=== PATIENT | male | born 1970 | race Hispanic/Latino ===

== ENCOUNTER 2018-10-05 11:16 | Inpatient (IN) | payer OTHER, BC ==
--- NOTE | 2018-10-05 11:50 | ED PDOC ---
HPI: General Adult Time Seen by Provider: 10/05/18 11:26 Chief Complaint (Nursing): Upper Extremity Problem/Injury History Per: Patient Additional Complaint(s): Pt. states earlier today while at work he was on a ladder and he accidentally fell off. States he injured his L wrist, R leg, and headache. Pt. states he is uncertain if he injured his head. Denies LOC, N/V, chest pain, SOB, hip/pelvic pain, abd pain, numbness, tingling, other injury. Past Medical History Reviewed: Historical Data, Nursing Documentation, Vital Signs Vital Signs: Last Vital Signs Temp 97.8 F 10/05/18 11:18 Pulse 87 10/05/18 11:18 Resp 20 10/05/18 11:18 BP 161/109 H 10/05/18 11:18 Pulse Ox 96 10/05/18 11:18 - Medical History Other PMH: vertigo - Surgical History Surgical History: No Surg Hx - Family History Family History: States: No Known Family Hx - Home Medications Home Medications: Ambulatory Orders Medication Instructions Recorded No Known Home Med 10/05/18 - Allergies Allergies/Adverse Reactions: Allergies Allergy/AdvReac Type Severity Reaction Status Date / Time No Known Allergies Allergy Verified 10/05/18 11:17 Review of Systems ROS Statement: Except As Marked, All Systems Reviewed And Found Negative Musculoskeletal: Positive for: Arm Pain, Leg Pain Neurological: Positive for: Headache Physical Exam - Physical Exam Appears: Positive for: Well, Non-toxic, No Acute Distress Head Exam: Positive for: ATRAUMATIC, NORMAL INSPECTION, NORMOCEPHALIC Skin: Positive for: Normal Color, Warm. Negative for: Rash Eye Exam: Positive for: Normal appearance, EOMI, PERRL ENT: Positive for: Normal ENT Inspection Neck: Positive for: Normal, Painless ROM Cardiovascular/Chest: Positive for: Regular Rate, Rhythm, Chest Non Tender Respiratory: Positive for: Normal Breath Sounds. Negative for: Respiratory Dis tress Gastrointestinal/Abdominal: Positive for: Normal Exam, Soft. Negative for: Tenderness Extremity: Positive for: Other (L wrist with mild deformity, tenderness, and swelling without break in skin integrity; radial pulse 2+ b/l, equal head of commission department stregh t b/l; able to actively move all fingers on L hand, no L elbow or L shoulder tenderness or swelling; superficial abrasions on anterior R leg) Neurologic/Psych: Positive for: Alert, Oriented (x3) - Laboratory Results Result Diagrams: 10/05/18 12:00 10/05/18 12:00 - ECG ECG: Positive for: Interpreted By Me ECG Rhythm: Positive for: Sinus Rhythm. Negative for: ST/T Changes Rate: 69 O2 Sat by Pulse Oximetry: 96 - Progress ED Course And Treament: Labs, L wrist and R leg x-rays, CT head w/o contrast, morphine 2mg IV, zofran 4mg IV ordered. Pt. kept NPO. Wrist x-ray: Comminuted intra-articular angulated fracture of distal radius as per radiology report. CT head w/o contrast: No acute intracranial hemorrhage. 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 Tib/Fib x-ray: no fx as per radiology report. 1420 Case d/w Dr. Koehler who requests pt. to be splinted and admitted for OR tomorrow. Case d/w Dr. Ag and agrees with plan and care. Case d/w Dr. Mckinney, hospitalist, and arrangements made for admission. All CT and x-ray results d/w family and patient. Pt. and family informed of plan. Agrees with plan and care. All questions answered. Procedures - Time-Out Type of Procedure: Splint placement Site of Procedure: L arm Correct Patient (with visual ID + MR# on ID Band): Yes Correct Procedure: Yes Correct Site Marked: Yes X-Ray Marked: Yes PA/Tech: Boo SHANNON-C - Splinting Location: L arm Hand-Made Type: orthoglass Splint: sugar-tong Pre-Proc Neuro Vasc Exam: normal Post-Proc Neuro Vasc Exam: normal Progress: Dr. Koehler requests arm to be kept elevated and hanging from pole. L arm held elevated 90 degree position using pole. Reports feeling much better in this position. Disposition - Clinical Impression Clinical Impression: Wrist fracture, left - Patient ED Disposition Is Patient to be Admitted: No - Disposition Disposition Time: 14:20 Condition: FAIR
[2018-10-05] MEDS ORDERED: Tdap Vaccine 0.5 ml Vial (10-64 yrs) IM ONE ×2 (11:57→12:45)
[2018-10-05 12:39] LABS: BASO # 0.1 K/uL (0.0-0.2); BASO % 0.8 % (0.0-2.0); EOS # 0.1 K/uL (0.0-0.7); EOS % 1.3 % (0.0-4.0); HEMOGLOBIN 15.5 g/dL (12.0-18.0); LYMPH # 2.2 K/uL (1.0-4.3); LYMPH % 32.1 % (20.0-40.0); MEAN CELL VOLUME 86.4 fl (80.0-94.0); MEAN CORPUSCULAR HGB CONC 33.6 g/dL (33.0-37.0); MONO # 0.5 K/uL (0.0-0.8); MONO % 7.6 % (0.0-10.0); NEUT % 58.2 % (50.0-75.0); NRBC % 0.3 % (0.0-0.0); RBC 5.33 Mil/uL (4.40-5.90); RED CELL DISTRIBUTION WIDTH 13.3 % (11.5-14.5); WHITE BLOOD COUNT 6.8 K/uL (4.8-10.8)
[2018-10-05 12:43] LABS: PROTHROMBIN TIME 11.6 Seconds (9.8-13.1)
[2018-10-05 12:46] LABS: PARTIAL THROMBOPLASTIN TIME 32.3 Seconds (25.6-37.1)
[2018-10-05 12:48] LABS: ALT/SGPT 33 U/L (21-72); AST/SGOT 26 U/L (17-59); BLOOD UREA NITROGEN 21 mg/dl (9-20); CALCIUM 10.3 mg/dL (8.4-10.2); GFR NON-AFRICAN AMERICAN > 60
--- NOTE | 2018-10-05 13:08 | CT ---
Date of service: 10/05/2018 PROCEDURE: CT HEAD WITHOUT CONTRAST. HISTORY: trauma COMPARISON: 06/28/2014 TECHNIQUE: Axial computed tomography images were obtained through the head/brain without intravenous contrast. Radiation dose: Total exam DLP = 744.34 mGy-cm. This CT exam was performed using one or more of the following dose reduction techniques: Automated exposure control, adjustment of the mA and/or kV according to patient size, and/or use of iterative reconstruction technique. FINDINGS: HEMORRHAGE: No intracranial hemorrhage. BRAIN: No mass effect or edema. 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 No evidence of acute infarct. VENTRICLES: Unremarkable. No hydrocephalus. CALVARIUM: Unremarkable. PARANASAL SINUSES: Unremarkable as visualized. No significant inflammatory changes. MASTOID AIR CELLS: Unremarkable as visualized. No inflammatory changes. OTHER FINDINGS: None. IMPRESSION: No acute intracranial hemorrhage. 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 Otherwise unremarkable.
--- NOTE | 2018-10-05 13:12 | RAD ---
Date of service: 10/05/2018 PROCEDURE: Left Wrist Radiographs. HISTORY: trauma COMPARISON: None. FINDINGS: BONES: Comminuted intra-articular distal radial fracture with dorsal angulation of the distal radial fragment. Radiocarpal articulation grossly intact. Ulnar styloid process appears intact. No other fracture identified. Intercarpal and carpal-metacarpal articulations are intact. JOINTS: As above SOFT TISSUES: Normal. OTHER FINDINGS: None. IMPRESSION: Comminuted intra-articular angulated fracture of distal radius.
--- NOTE | 2018-10-05 13:14 | RAD ---
Date of service: 10/05/2018 PROCEDURE: Radiographs of the right tibia and fibula. HISTORY: trauma COMPARISON: None available TECHNIQUE: Frontal and lateral views obtained. FINDINGS: BONES: No fracture or destructive lesion. JOINT SPACES: Unremarkable. OTHER FINDINGS: None. IMPRESSION: Unremarkable radiographs of the right tibia and fibula.
--- NOTE | 2018-10-05 15:58 | CP.PCM.HP ---
<PierceOrlando - Last Filed: 10/05/18 16:29> History of Present Illness - History of Present Illness History of Present Illness: 47 y/o M with no significant PMHx came to ED after a fall. Pt. states earlier today while at work he was on a ladder and he accidentally fell off. He injured his left wrist, right leg, and head. Denies loosing consciousness, nausea, vomiting, chest pain, SOB, hip/pelvic pain, abd pain, numbness, tingling, other injury. A friend called an ambulance and brought to ED. PMD: Dr. Ag PMHx: Denies PSHx: Tympanostomy and tendon repair surgery Allergies: NKDA F/H: DM and HTN in maternal side of family, Thyroid cancer in grandfather Social Hx: Ex-Smoker 20 years, 1 PPD, quit 5 years ago, Social alcohol, denies drug use. ED Course: VSS except for elevated BP XR L wrist: intraarticular fracture of radius R leg XR: No fracture noted PT/PTT/CBC/CMP unremarkable except for BUN 21. Present on Admission - Present on Admission Any Indicators Present on Admission: No History of DVT/PE: No History of Uncontrolled Diabetes: No Urinary Catheter: No Decubitus Ulcer Present: No Review of Systems - Review of Systems Systems not reviewed;Unavailable: Acuity of Condition - Constitutional Constitutional: Headache. absent: Anorexia, Fever - EENT Eyes: absent: Change in Vision - Cardiovascular Cardiovascular: absent: Chest Pain, Chest Pain with Activity - Respiratory Respiratory: absent: Cough, Dyspnea, Dyspnea on Exertion - Gastrointestinal Gastrointestinal: absent: Abdominal Pain, Nausea, Vomiting - Genitourinary Genitourinary: absent: Change in Urinary Stream - Musculoskeletal Musculoskeletal: absent: Back Pain - Neurological Neurological: absent: Abnormal Gait, Confusion, Numbness, Weakness Past Patient History - Past Social History Smoking Status: Former Smoker - NEUROLOGICAL Hx Vertigo: Yes - PSYCHIATRIC Hx Substance Use: No - SURGICAL HISTORY Hx Musculoskeletal Surgery: Yes Other/Comment: ear tubes Meds Allergies/Adverse Reactions: Allergies Allergy/AdvReac Type Severity Reaction Status Date / Time No Known Allergies Allergy Verified 10/05/18 11:17 Physical Exam - Constitutional Appears: Well, In Acute Distress - Head Exam Head Exam: ATRAUMATIC, NORMAL INSPECTION, NORMOCEPHALIC - Eye Exam Eye Exam: EOMI, Normal appearance Pupil Exam: PERRL - ENT Exam ENT Exam: Mucous Membranes Moist - Neck Exam Neck exam: Positive for: Full Rom, Normal Inspection. Negative for: Tenderness - Respiratory Exam Respiratory Exam: Clear to Auscultation Bilateral, NORMAL BREATHING PATTERN. absent: Rales, Rhonchi, Wheezes, Respiratory Distress - Cardiovascular Exam Cardiovascular Exam: REGULAR RHYTHM, +S1, +S2. absent: Systolic Murmur - GI/Abdominal Exam GI & Abdominal Exam: Normal Bowel Sounds, Soft. absent: Distended, Tenderness - Extremities Exam Additional comments: Limited ROM L wrist, LUE warm, pink, sensation intact. B/L LE, intact, sensory, motor and reflex intact. - Neurological Exam Neurological exam: Alert, Normal Gait, Oriented x3 - Psychiatric Exam Psychiatric exam: Normal Affect, Normal Mood - Skin Skin Exam: Dry, Intact, Normal Color, Warm Results - Vital Signs Recent Vital Signs: Last Vital Signs Temp 99.5 F 10/05/18 15:25 Pulse 73 10/05/18 15:25 Resp 18 10/05/18 15:25 BP 155/98 H 10/05/18 15:25 Pulse Ox 99 10/05/18 15:25 - Labs Result Diagrams: 10/05/18 12:00 10/05/18 12:00 Labs: Laboratory Results - last 24 hr 10/05/18 10/05/18 10/05/18 12:00 12:00 12:00 WBC 6.8 RBC 5.33 Hgb 15.5 Hct 46.1 MCV 86.4 MCH 29.0 MCHC 33.6 RDW 13.3 Plt Count 216 MPV 9.0 Neut % (Auto) 58.2 Lymph % (Auto) 32.1 [place] % (Auto) 7.6 Eos % (Auto) 1.3 Baso % (Auto) 0.8 Neut # (Auto) 4.0 Lymph # (Auto) 2.2 [place] # (Auto) 0.5 Eos # (Auto) 0.1 Baso # (Auto) 0.1 PT 11.6 INR 1.0 APTT 32.3 Sodium 140 Potassium 4.4 Chloride 101 Carbon Dioxide 26 Anion Gap 17 BUN 21 H Creatinine 0.9 Est GFR ( Amer) > 60 Est GFR (Non-Af Amer) > 60 Random Glucose 119 H Calcium 10.3 H Total Bilirubin 0.6 AST 26 ALT 33 Alkaline Phosphatase 56 Total Protein 7.8 Albumin 4.0 Globulin 3.8 Albumin/Globulin Ratio 1.0 Blood Type Blood Type Confirm Antibody Screen BBK History Checked 10/05/18 10/05/18 12:00 13:23 WBC RBC Hgb Hct MCV MCH MCHC RDW Plt Count MPV Neut % (Auto) Lymph % (Auto) [place] % (Auto) Eos % (Auto) Baso % (Auto) Neut # (Auto) Lymph # (Auto) [place] # (Auto) Eos # (Auto) Baso # (Auto) PT INR APTT Sodium Potassium Chloride Carbon Dioxide Anion Gap BUN Creatinine Est GFR ( Amer) Est GFR (Non-Af Amer) Random Glucose Calcium Total Bilirubin AST ALT Alkaline Phosphatase Total Protein Albumin Globulin Albumin/Globulin Ratio Blood Type A NEGATIVE Blood Type Confirm A NEGATIVE Antibody Screen Negative BBK History Checked No verified bt Assessment & Plan - Assessment and Plan (Free Text) Assessment: 47 y/o M with no PMHx admitted after a fall injury from ladder. Patient with communited fracture of left distal radius on XR. XR L wrist: Comminuted intra-articular angulated fracture of distal radius. Head CT: No acute intracranial hemorrhage. 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 Otherwise unremarkable. Tibia/Fibula Xray: Unremarkable radiographs of the right tibia and fibula. Plan: Distal radial fracture - XR L Wrist: Comminuted intra-articular distal radial fracture with dorsal angulation of the distal radial fragment. - S/P Morphine 2 and 4 mg IVP in ER - Pain control with Tylenol, toradol 15 mg and Morphine 2 mg - Orthopedic consult on board, Will follow recs - PT/PTT, CBC, CMP unremarkable - Patient to remain NPO past midnight. DVT prophylaxis - SCDs for now Diet - NPO past midnight 10/06 <Tamera Mckinney - Last Filed: 10/06/18 09:08> Results - Vital Signs Recent Vital Signs: Last Vital Signs Temp 98.5 F 10/05/18 20:30 Pulse 76 10/05/18 20:30 Resp 19 10/05/18 20:44 BP 157/90 H 10/05/18 20:30 Pulse Ox 96 10/05/18 20:30 - Labs Result Diagrams: 10/05/18 12:00 10/05/18 12:00 Labs: Laboratory Results - last 24 hr 10/05/18 10/05/18 10/05/18 12:00 12:00 12:00 WBC 6.8 RBC 5.33 Hgb 15.5 Hct 46.1 MCV 86.4 MCH 29.0 MCHC 33.6 RDW 13.3 Plt Count 216 MPV 9.0 Neut % (Auto) 58.2 Lymph % (Auto) 32.1 [place] % (Auto) 7.6 Eos % (Auto) 1.3 Baso % (Auto) 0.8 Neut # (Auto) 4.0 Lymph # (Auto) 2.2 [place] # (Auto) 0.5 Eos # (Auto) 0.1 Baso # (Auto) 0.1 PT 11.6 INR 1.0 APTT 32.3 Sodium 140 Potassium 4.4 Chloride 101 Carbon Dioxide 26 Anion Gap 17 BUN 21 H Creatinine 0.9 Est GFR ( Amer) > 60 Est GFR (Non-Af Amer) > 60 Random Glucose 119 H Calcium 10.3 H Total Bilirubin 0.6 AST 26 ALT 33 Alkaline Phosphatase 56 Total Protein 7.8 Albumin 4.0 Globulin 3.8 Albumin/Globulin Ratio 1.0 Blood Type Blood Type Confirm Antibody Screen BBK History Checked 10/05/18 10/05/18 12:00 13:23 WBC RBC Hgb Hct MCV MCH MCHC RDW Plt Count MPV Neut % (Auto) Lymph % (Auto) [place] % (Auto) Eos % (Auto) Baso % (Auto) Neut # (Auto) Lymph # (Auto) [place] # (Auto) Eos # (Auto) Baso # (Auto) PT INR APTT Sodium Potassium Chloride Carbon Dioxide Anion Gap BUN Creatinine Est GFR ( Amer) Est GFR (Non-Af Amer) Random Glucose Calcium Total Bilirubin AST ALT Alkaline Phosphatase Total Protein Albumin Globulin Albumin/Globulin Ratio Blood Type A NEGATIVE Blood Type Confirm A NEGATIVE Antibody Screen Negative BBK History Checked No verified bt Attending/Attestation - Attestation I have personally seen and examined this patient.: Yes I have fully participated in the care of the patient.: Yes I have reviewed all pertinent clinical information: Yes Notes (Text): 10/06/18 09:08 Agree with findings and plan as above.
--- NOTE | 2018-10-05 19:02 | RAD ---
Date of service: 10/05/2018 PROCEDURE: CHEST RADIOGRAPH, 1 VIEW HISTORY: Pre-op COMPARISON: 08/29/2013 FINDINGS: LUNGS: Clear. PLEURA: No pneumothorax or pleural fluid seen. CARDIOVASCULAR: No aortic atherosclerotic calcification present. Normal. OSSEOUS STRUCTURES: No significant abnormalities. VISUALIZED UPPER ABDOMEN: Normal. OTHER FINDINGS: None. IMPRESSION: No active disease.
[2018-10-05] MEDS: Potassium Ch 20mEq in D5-1/2NS 1,000 ML IV SCH (21:59)
[2018-10-06] MEDS: Potassium Ch 20mEq in D5-1/2NS 1,000 ML IV SCH (05:11)
--- NOTE | 2018-10-06 08:55 | CARD ---
APPROVED REPORT Date of service: 10/05/2018 EKG Measurement Heart [id number] <Conclusion> Normal sinus rhythm Minimal voltage criteria for LVH, may be normal variant Borderline ECG
--- NOTE | 2018-10-06 09:58 | CP.PCM.PN ---
<Orlando Pierce - Last Filed: 10/06/18 14:05> Subjective - Date & Time of Evaluation Date of Evaluation: 10/06/18 Time of Evaluation: 07:00 - Subjective Subjective: Patient seen and examined at bedside in AM. Patient sitting in chair with L hand in upright position with volar splint. Patient NPO since midnight. Patient continues to have moderate pain. Last Toradol dose at 5 am. Patient refuses to take morphine for pain relief due to nausea. Last BM yesterday. Patient's BP has been elevated in 150/80 since yesterday but denies any palpitation, CP, SOB dizziness, headache or vision changes. Pt also denies any abdominal pain, na usea, vomiting, pedal edema. Repeat BP at 11am 177/110 and 180/113. Denies any acute symptoms. Objective - Vital Signs/Intake and Output Vital Signs (last 24 hours): Temp Pulse Resp BP Pulse Ox 98.5 F 65 19 178/70 H 96 10/05/18 20:30 10/06/18 09:26 10/05/18 20:44 10/06/18 09:26 10/05/18 20:30 - Medications Medications: Current Medications Acetaminophen (Tylenol 325mg Tab) 650 mg PO Q4 PRN PRN Reason: Pain, Mild (1-3) Potassium Chloride/Dextrose/Sod Cl (Potassium Chl 20 Meq In D5-1/2ns) 1,000 mls @ 125 mls/hr IV .Q8H CATRACHITO Stop: 10/06/18 17:00 Last Admin: 10/06/18 05:11 Dose: 125 mls/hr Ketorolac Tromethamine (Toradol) 30 mg IVP Q6 PRN PRN Reason: Pain, moderate (4-7) Last Admin: 10/06/18 04:58 Dose: 30 mg Morphine Sulfate (Morphine) 2 mg IVP Q4 PRN PRN Reason: Pain, severe (8-10) Last Admin: 10/05/18 19:45 Dose: 2 mg - Labs Labs: 10/05/18 12:00 10/05/18 12:00 PT 11.6 Seconds (9.8-13.1) 10/05/18 12:00 INR 1.0 10/05/18 12:00 APTT 32.3 Seconds (25.6-37.1) 10/05/18 12:00 - Constitutional Appears: Well, No Acute Distress - Head Exam Head Exam: ATRAUMATIC, NORMAL INSPECTION, NORMOCEPHALIC - Eye Exam Eye Exam: EOMI, Normal appearance - ENT Exam ENT Exam: Mucous Membranes Moist - Respiratory Exam Respiratory Exam: Clear to Ausculation Bilateral, NORMAL BREATHING PATTERN. absent: Rales, Rhonchi, Wheezes, Respiratory Distress - Cardiovascular Exam Cardiovascular Exam: REGULAR RHYTHM, +S1, +S2. absent: Murmur - GI/Abdominal Exam GI & Abdominal Exam: Soft, Normal Bowel Sounds. absent: Distended, Tenderness - Extremities Exam Extremities Exam: absent: Calf Tenderness, Pedal Edema, Tenderness Additional comments: L hand: Elevated L hand with splint, motor, sensory intact. - Neurological Exam Neurological Exam: Alert, Awake, Oriented x3 - Psychiatric Exam Psychiatric exam: Normal Affect, Normal Mood - Skin Skin Exam: Dry, Intact, Normal Color, Warm Assessment and Plan - Assessment and Plan (Free Text) Assessment: 47 y/o M with no PMHx admitted after a fall injury from ladder. Patient with communited fracture of left distal radius on XR. XR L wrist: Comminuted intra-articular angulated fracture of distal radius. Head CT: No acute intracranial hemorrhage. 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 Otherwise unremarkable. Tibia/Fibula Xray: Unremarkable radiographs of the right tibia and fibula Plan: Distal radial fracture - XR L Wrist: Comminuted intra-articular distal radial fracture with dorsal angulation of the distal radial fragment. - Pain control with Tylenol, toradol 30 mg and Morphine 2 mg - Orthopedic consult on board, Will follow recs - PT/PTT, CBC, CMP, CXR and EKG unremarkable - Pt to remain NPO - OR for today afternoon. Elevated BP - Continues to have elevated BP, 170s/90s - Asymptomatic - S/P Metoprolol 25 mg PO stat - Lisinopril 10 mg PO stat - Tylenol 975 and Toradol 30 mg STAT - Monitor vitals DVT prophylaxis - SCDs for now Diet - NPO past midnight 10/06 <Tamera Mckinney - Last Filed: 10/09/18 15:30> Objective - Vital Signs/Intake and Output Vital Signs (last 24 hours): Temp Pulse Resp BP Pulse Ox 97.5 F L 100 H 20 174/75 H 96 10/07/18 08:18 10/07/18 11:51 10/07/18 08:18 10/07/18 11:51 10/07/18 08:18 - Labs Labs: 10/07/18 06:21 10/07/18 06:21 PT 11.6 Seconds (9.8-13.1) 10/05/18 12:00 INR 1.0 10/05/18 12:00 APTT 32.3 Seconds (25.6-37.1) 10/05/18 12:00 Attending/Attestation - Attestation I have personally seen and examined this patient.: Yes I have fully participated in the care of the patient.: Yes I have reviewed all pertinent clinical information, including history, physical exam and plan: Yes Notes (Text): 10/09/18 15:30 Agree with findings and plan as above.
--- NOTE | 2018-10-06 10:05 | CP.PCM.CON ---
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 He noted swelling and deformity at that time. Denies numbness/tingling. PMH: vertigo PSH: right ankle tendon repair, tubes in ears NKDA Review of Systems - Review of Systems All systems: reviewed and no additional remarkable complaints except - Musculoskeletal Musculoskeletal: As Per HPI Past Patient History - Past Medical History & Family History Past Medical History?: Yes Past Family History: Reviewed and not pertinent - Past Social History Smoking Status: Former Smoker - CARDIAC Hx Cardiac Disorders: No - PULMONARY Hx Respiratory Disorders: No - NEUROLOGICAL Hx Neurological Disorder: Yes (vertigo) - HEENT Hx HEENT Problems: No - RENAL Hx Chronic Kidney Disease: No - ENDOCRINE/METABOLIC Hx Endocrine Disorders: No - HEMATOLOGICAL/ONCOLOGICAL Hx Blood Disorders: No Hx AIDS: No Hx Human Immunodeficiency Virus (HIV): No - INTEGUMENTARY Hx Dermatological Problems: No - MUSCULOSKELETAL/RHEUMATOLOGICAL Hx Musculoskeletal Disorders: No Hx Falls: Yes - GASTROINTESTINAL Hx Gastrointestinal Disorders: No - GENITOURINARY/GYNECOLOGICAL Hx Genitourinary Disorders: No - PSYCHIATRIC Hx Psychophysiologic Disorder: No Hx Substance Use: No - SURGICAL HISTORY Hx Surgeries: Yes Hx Musculoskeletal Surgery: Yes Other/Comment: ear tubes - ANESTHESIA Hx Anesthesia: Yes Hx Anesthesia Reactions: No Hx Malignant Hyperthermia: No Has any member of the family had a problem w/ anesthesia?: No Meds Allergies/Adverse Reactions: Allergies Allergy/AdvReac Type Severity Reaction Status Date / Time No Known Allergies Allergy Verified 10/05/18 11:17 - Medications Medications: Current Medications Acetaminophen (Tylenol 325mg Tab) 650 mg PO Q4 PRN PRN Reason: Pain, Mild (1-3) Potassium Chloride/Dextrose/Sod Cl (Potassium Chl 20 Meq In D5-1/2ns) 1,000 mls @ 125 mls/hr IV .Q8H CATRACHITO Stop: 10/06/18 17:00 Last Admin: 10/06/18 05:11 Dose: 125 mls/hr Ketorolac Tromethamine (Toradol) 30 mg IVP Q6 PRN PRN Reason: Pain, moderate (4-7) Last Admin: 10/06/18 04:58 Dose: 30 mg Morphine Sulfate (Morphine) 2 mg IVP Q4 PRN PRN Reason: Pain, severe (8-10) Last Admin: 10/05/18 19:45 Dose: 2 mg Physical Exam - Constitutional Appears: Well, No Acute Distress - Head Exam Head Exam: ATRAUMATIC - Respiratory Exam Respiratory Exam: NORMAL BREATHING PATTERN - Cardiovascular Exam Additional comments: +cap refill - Expanded Upper Extremities Exam Left Forearm Wrist exam: swelling (pain with any active ROM fingers) Neuro motor exam: finger 2-5 abduction intact, thumb abduction, thumb IP flexion intact, thumb opposition intact, wrist extension intact Neurosensory exam: median nerve intact, radial nerve intact, ulnar nerve intact - Neurological Exam Neurological exam: Alert, Oriented x3 - Psychiatric Exam Psychiatric exam: Normal Affect, Normal Mood - Skin Skin Exam: Dry, Intact, Normal Color, Warm Results - Vital Signs Recent Vital Signs: Last Vital Signs Temp 98.5 F 10/05/18 20:30 Pulse 65 10/06/18 09:26 Resp 19 10/05/18 20:44 BP 178/70 H 10/06/18 09:26 Pulse Ox 96 10/05/18 20:30 - Labs Result Diagrams: 10/07/18 06:21 10/07/18 06:21 Labs: Laboratory Results - last 24 hr 10/05/18 10/05/18 10/05/18 12:00 12:00 12:00 WBC 6.8 RBC 5.33 Hgb 15.5 Hct 46.1 MCV 86.4 MCH 29.0 MCHC 33.6 RDW 13.3 Plt Count 216 MPV 9.0 Neut % (Auto) 58.2 Lymph % (Auto) 32.1 [place] % (Auto) 7.6 Eos % (Auto) 1.3 Baso % (Auto) 0.8 Neut # (Auto) 4.0 Lymph # (Auto) 2.2 [place] # (Auto) 0.5 Eos # (Auto) 0.1 Baso # (Auto) 0.1 PT 11.6 INR 1.0 APTT 32.3 Sodium 140 Potassium 4.4 Chloride 101 Carbon Dioxide 26 Anion Gap 17 BUN 21 H Creatinine 0.9 Est GFR ( Amer) > 60 Est GFR (Non-Af Amer) > 60 Random Glucose 119 H Calcium 10.3 H Total Bilirubin 0.6 AST 26 ALT 33 Alkaline Phosphatase 56 Total Protein 7.8 Albumin 4.0 Globulin 3.8 Albumin/Globulin Ratio 1.0 Blood Type Blood Type Confirm Antibody Screen BBK History Checked 10/05/18 10/05/18 12:00 13:23 WBC RBC Hgb Hct MCV MCH MCHC RDW Plt Count MPV Neut % (Auto) Lymph % (Auto) [place] % (Auto) Eos % (Auto) Baso % (Auto) Neut # (Auto) Lymph # (Auto) [place] # (Auto) Eos # (Auto) Baso # (Auto) PT INR APTT Sodium Potassium Chloride Carbon Dioxide Anion Gap BUN Creatinine Est GFR ( Amer) Est GFR (Non-Af Amer) Random Glucose Calcium Total Bilirubin AST ALT Alkaline Phosphatase Total Protein Albumin Globulin Albumin/Globulin Ratio Blood Type A NEGATIVE Blood Type Confirm A NEGATIVE Antibody Screen Negative BBK History Checked No verified bt - Impressions Impression: atient Name / ID : AKILAH HERNANDEZ R / [id number] Exam Date : 10/05/2018 12:23:59 ( Approved ) Study Comment : Sex / Age : M / 47Y Creator : Austin Vega MD Dictator : Austin Vega MD Competency Evaluated Nurse Aide : Client Portfolio Manager : Austin Vega MD Approver2 : Report Date : 10/05/2018 13:09:04 My Comment : Date of service: 10/05/2018 PROCEDURE: Left Wrist Radiographs. HISTORY: trauma COMPARISON: None. FINDINGS: BONES: Comminuted intra-articular distal radial fracture with dorsal angulation of the distal radial fragment. Radiocarpal articulation grossly intact. Ulnar styloid process appears intact. No other fracture identified. Intercarpal and carpal- metacarpal articulations are intact. JOINTS: As above SOFT TISSUES: Normal. OTHER FINDINGS: None. IMPRESSION: Comminuted intra-articular angulated fracture of distal radius. Assessment & Plan (1) Closed fracture of left distal radius Assessment and Plan: NPO for OR today elevation splint applied by ED labs reviewed d/w Dr. Koehler, agrees with above Status: Acute
[2018-10-06] MEDS ORDERED: methylPREDNISolone Depo 80 mg/ml Inj ONE (14:00)
[2018-10-06] MEDS ORDERED: Propofol 10 mg/ml Inj (20 ML) ONE (15:28)
[2018-10-06] MEDS ORDERED: Lactated Ringer's 1,000 ML IV ONE ×2 (15:30→19:50)
[2018-10-06] MEDS ORDERED: ePHEDrine 50 mg/ml Inj ONE (15:54)
[2018-10-06] MEDS: Bacitracin Ointment 30 GM TUBE ONE ×2 (17:40→17:54)
[2018-10-06] MEDS ORDERED: Bupivacaine HCl 0.5% PF (30 ml) Inj IJ ONE (17:53)
[2018-10-06] MEDS ORDERED: Oxycodone/Acetaminophen 5/325 mg Tab PO PRN ×2 (18:11)
[2018-10-06] MEDS ORDERED: Dexamethasone 4 mg/1 ml IVP PRN (18:12)
[2018-10-06] MEDS ORDERED: HYDROmorphone 0.5 mg/0.5 ml ISec IVP PRN (18:12)
[2018-10-06] MEDS ORDERED: Lactated Ringer's 1,000 ML IV SCH (18:15)
[2018-10-06] MEDS ORDERED: Lactated Ringer's 500 ML IV ONE (18:15)
--- NOTE | 2018-10-06 18:29 | PCM.SURG1 ---
Surgeon's Initial Post Op Note - Surgeon's Notes Surgeon: Rodo Vending Stand Supervisor: GABBY Yepez/ 2nd assist Elias Villalta Type of Anesthesia: General Endo Anesthesia Administered By: DR reyna vasquez Pre-Operative Diagnosis: displaced/comminuted post traumatic L intraarticuklar distal radius fracture L wrist. post traumatic OL carpal tunnel syndrome Operative Findings: comminuted/displaced intrararticular L distal radius fx. carpal tunnel syndrome L wrist ( post traumtic)\. tebnosynovitis flexor tendons Post-Operative Diagnosis: as above Operation Performed: ORIF displaced/comminuted intraarticular L distl radius fracture. decompression median nerve. release transverse carpal ligamnet. partial flexor tenosynovectomy. applx volar sploibnt. intrarticular [id number] L wrist Specimen/Specimens Removed: callous/bone /tenosynoivuits Estimated Blood Loss: EBL {In ML}: 15 Blood Products Given: N/A Drains Used: No Drains Post-Op Condition: Fair Date of Surgery/Procedure: 10/06/18 Time of Surgery/Procedure: 16:30 (time in room/anesthesia indcution time 1530)
--- NOTE | 2018-10-06 19:06 | RAD ---
Date of service: 10/06/2018 PROCEDURE: Fluoroscopic assistance in excess of 1 hour. HISTORY: FLUOROSCOPY COMPARISON: None TECHNIQUE: Standard protocol for this study/examination. FINDINGS: Total fluoroscopic time (continuous mode) utilized during the procedure 8.0 seconds. Total exam DLP: 0.13 (mGy). IMPRESSION: Submitted images from the current procedure: 6.0
--- NOTE | 2018-10-06 23:34 | CP.PCM.PCO ---
Assessment and Plan - Assessment and Plan (Free Text) Assessment: Pt assessed postoperatively. Seen lying in bed with Left arm cast. Reports mild nausea and arm pain but otherwise denies cp, sob, cough, numbness/tingling or motor deficits in his digits. Vitals stable with slightly elevated BP in 150's systolic (was 170 postoperatively while pt had pain). Lung exam clear to auscultation with normal heart sounds. Left arm cast in placed, digits exposed, warm with good capillary refill, motor and sensation in tact. Paige Lee, PGY2
[2018-10-07 04:53] VITALS: O2SAT 96
[2018-10-07 06:36] LABS: HEMOGLOBIN 15.4 g/dL (12.0-18.0); MEAN CELL VOLUME 87.3 fl (80.0-94.0); MEAN CORPUSCULAR HGB CONC 33.2 g/dL (33.0-37.0); RBC 5.32 Mil/uL (4.40-5.90); RED CELL DISTRIBUTION WIDTH 13.7 % (11.5-14.5); WHITE BLOOD COUNT 10.7 K/uL (4.8-10.8)
[2018-10-07 06:41] LABS: BLOOD UREA NITROGEN 11 mg/dl (9-20); CALCIUM 9.3 mg/dL (8.4-10.2); GFR NON-AFRICAN AMERICAN > 60
[2018-10-07 08:19] VITALS: BP 174/75; PULSE 100; RESP 20; TEMP 97.5
--- NOTE | 2018-10-07 10:02 | CP.PCM.PN ---
Subjective - Date & Time of Evaluation Date of Evaluation: 10/07/18 Time of Evaluation: 09:55 - Subjective Subjective: Patient states pain is much better today and he can move his fingers without pain, which is sig improvement from pre op. Denies numbness/tingling. Objective - Vital Signs/Intake and Output Vital Signs (last 24 hours): Temp Pulse Resp BP Pulse Ox 97.5 F L 100 H 20 174/75 H 96 10/07/18 08:18 10/07/18 08:18 10/07/18 08:18 10/07/18 08:18 10/07/18 08:18 - Medications Medications: Current Medications Acetaminophen (Tylenol 325mg Tab) 650 mg PO Q4 PRN PRN Reason: Pain, Mild (1-3) Lactated Ringer's (Lactated Ringer's) 1,000 mls @ 100 mls/hr IV .Q10H CATRACHITO Last Admin: 10/06/18 21:08 Dose: 100 mls/hr Ketorolac Tromethamine (Toradol) 30 mg IVP Q6 PRN PRN Reason: Pain, moderate (4-7) Last Admin: 10/06/18 21:59 Dose: 30 mg Morphine Sulfate (Morphine) 2 mg IVP Q4 PRN PRN Reason: Pain, severe (8-10) Last Admin: 10/05/18 19:45 Dose: 2 mg Ondansetron HCl (Zofran Inj) 4 mg IVP Q4 PRN PRN Reason: Nausea/Vomiting Oxycodone/Acetaminophen (Percocet 5/325 Mg Tab) 1 tab PO Q4 PRN PRN Reason: Pain, Mild (1-3) Stop: 10/09/18 18:12 Oxycodone/Acetaminophen (Percocet 5/325 Mg Tab) 2 tab PO Q4 PRN PRN Reason: Pain, moderate (4-7) Stop: 10/09/18 18:12 - Labs Labs: 10/07/18 06:21 10/07/18 06:21 PT 11.6 Seconds (9.8-13.1) 10/05/18 12:00 INR 1.0 10/05/18 12:00 APTT 32.3 Seconds (25.6-37.1) 10/05/18 12:00 - Extremities Exam Additional comments: LUE: +ROM fingers/thumb flex/ext/abd/add, sensation intact to med/rad/ulnar nerve distrib. +cap refill, splint intact, elevated, minimal finger swelling Assessment and Plan (1) Closed fracture of left distal radius Assessment & Plan: POD#1 s/p ORIF ortho stable for d/c home elevation keep splint dry and intact patient to f/u in office in 1 week call for appt time pain medication prn d/w Dr. Koehler agrees with above Status: Acute
--- NOTE | 2018-10-07 12:37 | CP.PCM.DIS ---
<Orlando Pierce - Last Filed: 10/07/18 12:37> Provider - Provider Date of Admission: 10/05/18 14:45 Attending physician: Tamera Mckinney DO Consults: 10/05/18 14:26 Orthopedic Consult Stat Comment: Consulting Provider: Jaswant Call III Consulting Physician: Jaswant Call III Reason for Consult: distal radial fracture 10/06/18 18:11 Case Management Referral Routine Comment: Physician Instructions: Reason For Exam: Reason for Referral: Discharge Planning Time Spent in preparation of Discharge (in minutes): 30 Diagnosis - Discharge Diagnosis (1) Closed fracture of left distal radius Status: Acute (2) Hypertension Status: Acute Hospital Course - Lab Results Lab Results: Most Recent Lab Values WBC 10.7 K/uL (4.8-10.8) D 10/07/18 06:21 RBC 5.32 Mil/uL (4.40-5.90) 10/07/18 06:21 Hgb 15.4 g/dL (12.0-18.0) 10/07/18 06:21 Hct 46.5 % (35.0-51.0) 10/07/18 06:21 MCV 87.3 fl (80.0-94.0) 10/07/18 06:21 MCH 29.0 pg (27.0-31.0) 10/07/18 06:21 MCHC 33.2 g/dL (33.0-37.0) 10/07/18 06:21 RDW 13.7 % (11.5-14.5) 10/07/18 06:21 Plt Count 211 K/uL (130-400) 10/07/18 06:21 MPV 9.0 fl (7.2-11.7) 10/05/18 12:00 Neut % (Auto) 58.2 % (50.0-75.0) 10/05/18 12:00 Lymph % (Auto) 32.1 % (20.0-40.0) 10/05/18 12:00 [place] % (Auto) 7.6 % (0.0-10.0) 10/05/18 12:00 Eos % (Auto) 1.3 % (0.0-4.0) 10/05/18 12:00 Baso % (Auto) 0.8 % (0.0-2.0) 10/05/18 12:00 Neut # (Auto) 4.0 K/uL (1.8-7.0) 10/05/18 12:00 Lymph # (Auto) 2.2 K/uL (1.0-4.3) 10/05/18 12:00 [place] # (Auto) 0.5 K/uL (0.0-0.8) 10/05/18 12:00 Eos # (Auto) 0.1 K/uL (0.0-0.7) 10/05/18 12:00 Baso # (Auto) 0.1 K/uL (0.0-0.2) 10/05/18 12:00 PT 11.6 Seconds (9.8-13.1) 10/05/18 12:00 INR 1.0 10/05/18 12:00 APTT 32.3 Seconds (25.6-37.1) 10/05/18 12:00 Sodium 139 mmol/l (132-148) 10/07/18 06:21 Potassium 4.4 MMOL/L (3.6-5.0) 10/07/18 06:21 Chloride 99 mmol/L (98-107) 10/07/18 06:21 Carbon Dioxide 26 mmol/L (22-30) 10/07/18 06:21 Anion Gap 18 (10-20) 10/07/18 06:21 BUN 11 mg/dl (9-20) 10/07/18 06:21 Creatinine 0.8 mg/dl (0.8-1.5) 10/07/18 06:21 Est GFR ( Amer) > 60 10/07/18 06:21 Est GFR (Non-Af Amer) > 60 10/07/18 06:21 Random Glucose 153 mg/dL (75-110) H 10/07/18 06:21 Calcium 9.3 mg/dL (8.4-10.2) 10/07/18 06:21 Total Bilirubin 0.6 mg/dl (0.2-1.3) 10/05/18 12:00 AST 26 U/L (17-59) 10/05/18 12:00 ALT 33 U/L (21-72) 10/05/18 12:00 Alkaline Phosphatase 56 U/L (38-126) 10/05/18 12:00 Total Protein 7.8 G/DL (6.3-8.2) 10/05/18 12:00 Albumin 4.0 g/dL (3.5-5.0) 10/05/18 12:00 Globulin 3.8 gm/dL (2.2-3.9) 10/05/18 12:00 Albumin/Globulin Ratio 1.0 (1.0-2.1) 10/05/18 12:00 Blood Type A NEGATIVE 10/05/18 12:00 Blood Type Confirm A NEGATIVE 10/05/18 13:23 Antibody Screen Negative 10/05/18 12:00 BBK History Checked No verified bt 10/05/18 12:00 - Hospital Course Hospital Course: 47 y/o M with no significant PMHx admitted after a fall for left wrist fracture. XR L wrist: intraarticular fracture of radius, R leg XR: No fracture noted, PT/PTT/CBC/CMP unremarkable except for BUN 21. Orthopedics surgery consulted. EKG CXR unremarkable. Patient medically optimized and underwent ORIF on 10/06/18. Tolerated surgery well. Patient reports improvement in pain S/P surgery. Denies any tingling, numbness, weakness of LUE. Patient also had elevated BP ranging form 140/80 to 180/90 during hospital stay and diagnosed with HTN. Patient started on Lisinopril 10 mg PO daily. Patient stable and cleared by orthred to D/C home and will follow up with Dr. Call on 10/14/[address] Ag. Discharge Medications -Percocet 5/325 mg tab, Take 1 tab PO Q4-5 hr PRN for pain, #30 Tab -Lisinopril 10 mg PO daily Discharge Exam - Head Exam Head Exam: ATRAUMATIC - Eye Exam Eye Exam: EOMI, Normal appearance - ENT Exam ENT Exam: Mucous Membranes Moist - Respiratory Exam Respiratory Exam: Clear to PA & Lateral, UNREMARKABLE. absent: Rales, Rhonchi, Wheezes, Respiratory Distress - Cardiovascular Exam Cardiovascular Exam: REGULAR RHYTHM, +S1, +S2. absent: Systolic Murmur - GI/Abdominal Exam GI & Abdominal Exam: Normal Bowel Sounds, Soft. absent: Tenderness - Neurological Exam Neurological exam: Alert, Normal Gait, Oriented x3 - Skin Skin Exam: Dry, Intact, Normal Color, Warm Discharge Plan - Discharge Medications Prescriptions: RX: Lisinopril [Zestril] 10 mg PO DAILY #30 tablet RX: oxyCODONE/Acetaminophen [Percocet 5/325 mg Tab] 1 tab PO Q4 PRN #30 tab PRN Reason: Pain, Moderate (4-7) - Follow Up Plan Condition: FAIR Disposition: HOME/ ROUTINE Instructions: Wrist Fracture (DC), Open Reduction and Internal Fixation Surgery (DC), How to Use a Shoulder Sling Additional Instructions: follow up with dr call and your primary MD 5-7 days non weight bearing to left arm Referrals: Jaswant Call III, MD [Staff Provider] - Simeon Ag MD [Family Provider] - <Tamera Mckinney - Last Filed: 10/09/18 15:29> Provider - Provider Date of Admission: 10/05/18 14:45 Attending physician: Tamera Mckinney DO Consults: 10/05/18 14:26 Orthopedic Consult Stat Comment: Consulting Provider: Jaswant Call III Consulting Physician: Jaswant Call III Reason for Consult: distal radial fracture 10/06/18 18:11 Case Management Referral Routine Comment: Physician Instructions: Reason For Exam: Reason for Referral: Discharge Planning Hospital Course - Lab Results Lab Results: Most Recent Lab Values WBC 10.7 K/uL (4.8-10.8) D 10/07/18 06:21 RBC 5.32 Mil/uL (4.40-5.90) 10/07/18 06:21 Hgb 15.4 g/dL (12.0-18.0) 10/07/18 06:21 Hct 46.5 % (35.0-51.0) 10/07/18 06:21 MCV 87.3 fl (80.0-94.0) 10/07/18 06:21 MCH 29.0 pg (27.0-31.0) 10/07/18 06:21 MCHC 33.2 g/dL (33.0-37.0) 10/07/18 06:21 RDW 13.7 % (11.5-14.5) 10/07/18 06:21 Plt Count 211 K/uL (130-400) 10/07/18 06:21 MPV 9.0 fl (7.2-11.7) 10/05/18 12:00 Neut % (Auto) 58.2 % (50.0-75.0) 10/05/18 12:00 Lymph % (Auto) 32.1 % (20.0-40.0) 10/05/18 12:00 [place] % (Auto) 7.6 % (0.0-10.0) 10/05/18 12:00 Eos % (Auto) 1.3 % (0.0-4.0) 10/05/18 12:00 Baso % (Auto) 0.8 % (0.0-2.0) 10/05/18 12:00 Neut # (Auto) 4.0 K/uL (1.8-7.0) 10/05/18 12:00 Lymph # (Auto) 2.2 K/uL (1.0-4.3) 10/05/18 12:00 [place] # (Auto) 0.5 K/uL (0.0-0.8) 10/05/18 12:00 Eos # (Auto) 0.1 K/uL (0.0-0.7) 10/05/18 12:00 Baso # (Auto) 0.1 K/uL (0.0-0.2) 10/05/18 12:00 PT 11.6 Seconds (9.8-13.1) 10/05/18 12:00 INR 1.0 10/05/18 12:00 APTT 32.3 Seconds (25.6-37.1) 10/05/18 12:00 Sodium 139 mmol/l (132-148) 10/07/18 06:21 Potassium 4.4 MMOL/L (3.6-5.0) 10/07/18 06:21 Chloride 99 mmol/L (98-107) 10/07/18 06:21 Carbon Dioxide 26 mmol/L (22-30) 10/07/18 06:21 Anion Gap 18 (10-20) 10/07/18 06:21 BUN 11 mg/dl (9-20) 10/07/18 06:21 Creatinine 0.8 mg/dl (0.8-1.5) 10/07/18 06:21 Est GFR ( Amer) > 60 10/07/18 06:21 Est GFR (Non-Af Amer) > 60 10/07/18 06:21 Random Glucose 153 mg/dL (75-110) H 10/07/18 06:21 Calcium 9.3 mg/dL (8.4-10.2) 10/07/18 06:21 Total Bilirubin 0.6 mg/dl (0.2-1.3) 10/05/18 12:00 AST 26 U/L (17-59) 10/05/18 12:00 ALT 33 U/L (21-72) 10/05/18 12:00 Alkaline Phosphatase 56 U/L (38-126) 10/05/18 12:00 Total Protein 7.8 G/DL (6.3-8.2) 10/05/18 12:00 Albumin 4.0 g/dL (3.5-5.0) 10/05/18 12:00 Globulin 3.8 gm/dL (2.2-3.9) 10/05/18 12:00 Albumin/Globulin Ratio 1.0 (1.0-2.1) 10/05/18 12:00 Blood Type A NEGATIVE 10/05/18 12:00 Blood Type Confirm A NEGATIVE 10/05/18 13:23 Antibody Screen Negative 10/05/18 12:00 BBK History Checked No verified bt 10/05/18 12:00 Attending/Attestation - Attestation I have personally seen and examined this patient.: Yes I have fully participated in the care of the patient.: Yes I have reviewed all pertinent clinical information, including history, physical exam and plan: Yes Notes (Text): 10/09/18 15:29 Agree with findings and plan as above.
--- NOTE | 2018-10-07 14:11 | RAD ---
Date of service: 10/06/2018 PROCEDURE: Left Wrist Radiographs. HISTORY: s/p L wrist ORIF COMPARISON: Preoperative study 10/05/2018. FINDINGS: BONES: Status post open reduction internal fixation comminuted inter articular fracture distal left radius. Hardware in satisfactory position. Major fracture fragments are anatomically aligned. JOINTS: Normal. No dislocation. SOFT TISSUES: Postoperative, posttraumatic soft tissue swelling identified. OTHER FINDINGS: None. IMPRESSION: Satisfactory postoperative status.
--- NOTE | 2018-10-07 14:45 | OP ---
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 The patient fell from an unattended ladder to an outstretched left wrist and had a terrible fracture, intra-articular of the left distal radius. The patient was admitted, stabilized, seen in the emergency room. Pros, cons, risks and benefits of open reduction and internal fixation were discussed. Various options were discussed with the possibility of benign neglect, conservative management with closed reduction and casting versus open reduction and internal fixation were discussed. The patient has soft symptoms of carpal tunnel post-traumatic in the emergency room on evaluation on 10/05/2018. The concept of release of the carpal tunnel, open reduction and internal fixation of the displaced distal radius fracture discussed, the possibility of mechanical failure, infection, thromboembolic disease with secondary or tertiary surgery discussed. The patient wishes the surgery to be accomplished. Informed consent was taken from the patient and his . PREOPERATIVE DIAGNOSES: 1. Displaced comminuted post-traumatic left intra-articular distal radius fracture of the left wrist. 2. Post-traumatic carpal tunnel syndrome. OPERATIVE FINDINGS: 1. Comminuted displaced intra-articular left distal radius fracture. 2. Carpal tunnel syndrome, left wrist. 3. Tenosynovitis of the flexor tendons. POSTOPERATIVE DIAGNOSES: 1. Comminuted displaced intra-articular left distal radius fracture. 2. Carpal tunnel syndrome, left wrist. 3. Tenosynovitis of the flexor tendons. OPERATIVE PROCEDURES: 1. Open reduction internal fixation of displaced comminuted intra-articular left distal radius fracture. 2. Decompression of the median nerve. 3. Release of transverse carpal ligament. 4. Partial flexor tenosynovectomy. 5. Application of volar splint. Intra-articular injection. SURGEON: Jaswant Koehler MD BIOLOGY PROFESSOR: Aminata James, certified registered nursing assistant infant toddler teacher. SECOND PADDLE DYEING MACHINE OPERATOR: Cecil Wong PA-C ANESTHESIA: General endotracheal anesthesia. ANESTHESIOLOGIST: Anesthesia administered by Dr. Ki Correa. SPECIMENS REMOVED: Callus bone, tenosynovium. ESTIMATED BLOOD LOSS: 15 mL. BLOOD PRODUCTS GIVEN: None. DRAINS: No drains given. POSTOPERATIVE CONDITION: Stable. OPERATIVE PROCEDURE: After having obtained informed consent in the above fashion, after having identified the side, site and procedure and a critical pause/time-out, after the satisfactory induction of the anesthetic, the patient identified as Kaden Duran in the supine position with all bony prominences well padded. The left upper extremity was prepped and free draped in the usual fashion for upper extremity surgery. The tourniquet had been applied, but was not yet inflated. After exsanguinating the limb using a 4-inch Esmarch bandage, the tourniquet which had been applied was inflated to 250 mmHg. An incision was described in the median palmar crease deviating radially at the distal crease and deviating back ulnarly at the proximal crease. The incision was carried out proximally in the interval between the palmaris longus and flexor carpi radialis. The skin incision was carried down through the skin and subcutaneous tissue. The flap was elevated. The palmar aponeurosis was carefully divided. The entire extent of the transverse carpal ligament was divided as well. This having been accomplished, the transverse carpal ligament was divided and the interval between the flexor carpi radialis and the palmaris longus was identified. Great care was taken to avoid injury to the motor branch of the median nerve as well as the superficial sensory branch of the median nerve. This having been accomplished, the transverse carpal ligament having been divided carefully under direct vision with 2.0 eyeglass magnification, the median nerve was found to be compressed and there was found to be evidence of hemorrhage. A careful partial median neurolysis was accomplished under magnification using a tenotomy scissors. This having been accomplished, debridement of the epineurium was accomplished and neurolysis having been accomplished, attention was turned to the flexor tendons. There was found to be exuberant inflammation of the flexor tendons and a partial flexor tenosynovectomy was accomplished. This having been accomplished, the wrist capsule was identified. There was found to be hemorrhage from the fracture. The wrist capsule was divided and elevated for later closure. This having been accomplished, the fracture was identified. Unfortunately, the fracture was found to be severely comminuted and displaced and there was found to be an intra-articular component. The fracture does extend radially into the joint and this was a much more complex fracture than a simple two-part fracture. This was comminuted and severely displaced. This having been accomplished, the fracture site was curetted of healing callus and using a quarter-inch straight osteotome, the fracture was reduced with traction, ulnar deviation and compression of the radial fragment. The radial fragment was addressed with a 1.25-mm K-wire across the distal radius and the articular surface was thus reduced. At this point time, the pronator quadratus was carefully divided. Great care was taken to avoid injury to the anterior osseous branch of the median nerve. This having been accomplished, the fracture site was identified. The left distal radial locking plate was applied. This was held with K-wire. Each sequential drill hole was drilled. The initial securing screws were nonlocking. This was placed through judgment of the plate. The plate was adjusted to appropriate position. Each sequential hole was drilled, sounded and the appropriate size locking screws were placed. Verification of position was offered on AP and lateral image intensification views. The wound was thoroughly irrigated and at this point in time; the position was found to be acceptable, transverse carpal ligament having been divided; partial median neurolysis having been accomplished, partial flexor tenosynovectomy having been accomplished, autograft, allograft, bone graft was accomplished to the fracture site. The plate position was found to be acceptable. The wound was thoroughly irrigated prior to bone grafting. Bone grafting was accomplished and closures in layers with interrupted Vicryl, sveta and nylon. Intra-articular injection of Marcaine was accomplished. Lex Castaneda compression dressing and volar splint was applied. The patient was stable in recovery. Left distal radius is the correct wrist. The possibility of mechanical failure, infection, thromboembolic disease, secondary or tertiary surgery was discussed for plate removal later. This was discussed at length with the family. Jaswant Koehler MD
== END 2018-10-07 13:02 | disposition home or self-care (01) | DRG 502 ==
LOC: H.ER 11:16 → H.ERHOLD 14:45 → H.MEDSURG1 20:25
PROVIDERS: ADMIT Student in an Organized Health Care Education/Training Program; ATTEND Student in an Organized Health Care Education/Training Program
PROC: 3E0234Z Introduction of Serum, Toxoid and Vaccine into Muscle, Percutaneous Approach (ICD-10-PCS; 2018-10-05)
PROC: 01N50ZZ Release Median Nerve, Open Approach (ICD-10-PCS; 2018-10-06)
PROC: 0LU Tendons, Supplement (ICD-10-PCS; 2018-10-06)
PROC: 0LB60ZZ Excision of Left Lower Arm and Wrist Tendon, Open Approach (ICD-10-PCS; principal; 2018-10-06 16:00)
PROC: 0PSJ04Z Reposition Left Radius with Internal Fixation Device, Open Approach (ICD-10-PCS; 2018-10-06 16:00)
DX: S52.572A Other intraarticular fracture of lower end of left radius, initial encounter for closed fracture (principal); M65.832 Other synovitis and tenosynovitis, left forearm; G56.02 Carpal tunnel syndrome, left upper limb; I10 Essential (primary) hypertension; Z23 Encounter for immunization; Z87.891 Personal history of nicotine dependence; W11.XXXA Fall on and from ladder, initial encounter; Y99.0 Civilian activity done for income or pay; Y92.89 Other specified places as the place of occurrence of the external cause